=== PATIENT | male | born 1955 | race Caucasian/White ===

== ENCOUNTER → 2021-03-27 | Outpatient (CLI) | payer OTHER ==
[2015-04-17 11:00] VITALS: BP 118/73
[~2021-03-27] MED LIST: PARO20TA3 PO; TADA5TAB PO
--- NOTE | 2021-03-27 19:05 | KCIC ---
EXAM: AP, lateral and oblique views of the left knee DATE: 03/27/2021 3:39 PM INDICATION: Reason: LT MEDIAL KNEE PAIN 1 WEEK, NKI / Spl. Instructions: / History: COMPARISON: No Prior FINDINGS: No acute fracture or dislocation. Small left knee joint effusion. Mild medial compartment joint spac e narrowing with small associated osteophytes. IMPRESSION: 1. No acute fracture or dislocation. 2. Left knee joint osteoarthritis. 3. Small left knee joint effusion. Electronically signed by: Tito Correa MD (03/27/2021 7:03 PM) [facility]
== END ==
LOC: KCIC 15:35
PROVIDERS: ATTEND Physician Assistant
DX: M17.12 Unilateral primary osteoarthritis, left knee (principal); M25.462 Effusion, left knee; M25.762 Osteophyte, left knee; M25.862 Other specified joint disorders, left knee
CPT/HCPCS: 73562